=== PATIENT | male | born 2000 | race Caucasian/White ===

== ENCOUNTER 2019-02-11 22:32 | Emergency (ER) | payer MEDICAID ==
[~2019-02-11] VITALS: Ht 185.4 cm; Wt 72.6 kg
[~2019-02-11 22:32] MED LIST: [UNRECOGNIZED DRUG - SUPPLY]
--- NOTE | 2019-02-11 23:28 | NUR ---
Pt called 3x, no answer. Patient left without being seen. No further treatment provided. ER MD aware
[2019-02-11 23:34] VITALS: BP_SYST 117
== END 2019-02-11 23:28 | disposition left against medical advice (07) ==
LOC: SED 22:32
DX: R55 Syncope and collapse (principal); H93.13 Tinnitus, bilateral; R68.83 Chills (without fever); Z53.21 Procedure and treatment not carried out due to patient leaving prior to being seen by health care provider

== ENCOUNTER 2019-03-23 17:50 | Emergency (ER) | payer MEDICAID ==
[~2019-03-23] VITALS: Ht 185.4 cm; Wt 81.6 kg
[2019-03-23 17:50] VITALS: BP_SYST 129
--- NOTE | 2019-03-23 17:50 | NUR ---
BROUGHT BACK TO BED #7 AND TRIAGED. REPORT GIVEN TO RAMOS.
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
--- NOTE | 2019-03-23 17:57 | NUR ---
MARIIA HAYES AT BEDSIDE FOR EVALUATION
[2019-03-23] MEDS ORDERED: KETOROLAC TROMETHAMINE 60 MG/2 ML VIAL IM ONE (18:00)
--- NOTE | 2019-03-23 18:29 | NUR ---
Patient given written and verbal discharge instructions and verbalizes understanding. ER MD discussed with patient the results and treatment provided. Patient in stable condition. ID arm band removed. Rx of TYLENOL WITH CODINE AND MOTRIN given. Patient educated on pain management and to follow up with PMD. Pain Scale 7/10 TOLERABLE. PATIENT SENT HOME WITH RX OF PAIN MEDS. Opportunity for questions provided and answered. Medication side effect fact sheet provided.
[2019-03-23 18:30] VITALS: BP_SYST 129
== END 2019-03-23 18:29 | disposition home or self-care (01) ==
LOC: SED 17:50
DX: K04.7 Periapical abscess without sinus (principal); K08.89 Other specified disorders of teeth and supporting structures; J45.909 Unspecified asthma, uncomplicated
CPT/HCPCS: 96372; 99283; J1885

== ENCOUNTER 2021-07-19 19:46 | Emergency (ER) | payer OTHER, MEDICAID ==
[~2021-07-19] VITALS: Ht 185.4 cm; Wt 99.8 kg
--- NOTE | 2021-07-19 20:09 | NUR ---
Patient to [facility] for evaluation.
--- NOTE | 2021-07-19 20:09 | NUR ---
ER at bedside examining patient.
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
[2021-07-19 20:15] VITALS: BP_SYST 128
[2021-07-19] MEDS ORDERED: IBUP-1969 PO (21:10)
--- NOTE | 2021-07-19 21:52 | NUR ---
Right wrist splint applied . Radial pulse noted. Capillary refill <3 seconds. Patient has ability to move non-splinted digits. Has sensation present to affected site. Skin color within normal limits. Applied for pain management control.
[2021-07-19 22:13] VITALS: BP_SYST 112
--- NOTE | 2021-07-19 22:13 | NUR ---
Patient given written and verbal discharge instructions and verbalizes understanding. ER MD discussed with patient the results and treatment provided. Patient in stable condition. ID arm band removed. Ibuprofen RX given. Patient educated on pain management and to follow up with PMD. Pain Scale 0/10 Opportunity for questions provided and answered. Medication side effect fact sheet provided.
== END 2021-07-19 22:13 | disposition home or self-care (01) ==
LOC: SED 19:46
DX: S13.4XXA Sprain of ligaments of cervical spine, initial encounter (principal); S63.501A Unspecified sprain of right wrist, initial encounter; M25.562 Pain in left knee; J45.909 Unspecified asthma, uncomplicated; Z79.899 Other long term (current) drug therapy; V49.49XA Driver injured in collision with other motor vehicles in traffic accident, initial encounter; Y93.89 Activity, other specified; Y92.89 Other specified places as the place of occurrence of the external cause; Y99.8 Other external cause status
CPT/HCPCS: 72125-TC; 73564; 76376; 99284

== ENCOUNTER 2022-01-01 02:03 | Emergency (ER) | payer MEDICAID ==
[~2022-01-01] VITALS: Ht 182.9 cm; Wt 81.6 kg
[~2022-01-01 02:03] MED LIST changes: +IBUP-1969 PO
[2022-01-01 02:05] VITALS: BP_SYST 129
--- NOTE | 2022-01-01 02:06 | NUR ---
DR MARTI AT BEDSIDE FOR EXAM
[2022-01-01] MEDS ORDERED: methylPREDNISolone SOD SUCC/PF 62.5 MG/ML VIAL IVP ONE (02:15)
[2022-01-01] MEDS ORDERED: ALBUTEROL SULFATE 0.083% 2.5 MG/3 ML VIAL.NEB INH ONE ×2 (02:15→03:30)
[2022-01-01] MEDS ORDERED: NACL 0.9% 1,000 ML IV ONE (02:15)
--- NOTE | 2022-01-01 02:40 | NUR ---
PATIENT MOVED TO BED 8. PLACED ON CARDIAC MONITORING
--- NOTE | 2022-01-01 03:50 | NUR ---
PT IS A&O X 4 CAME IN WITH SOB. UPON ASSESMENT PT HAS WHEEZING LUNG SOUND. PT STATES THAT HE HAS ASHMA SINCE A KID. RT INITATE BREATHING TREATMENT.
[2022-01-01] MEDS ORDERED: PRED20TA PO (04:53)
--- NOTE | 2022-01-01 05:02 | NUR ---
Patient given written and verbal discharge instructions and verbalizes understanding. ER MD discussed with patient the results and treatment provided. Patient in stable condition. ID arm band removed. IV catheter removed intact and dressing applied, no active bleeding. Rx of PREDNISOME given. Patient educated on pain management and to follow up with PMD. Pain Scale . Opportunity for questions provided and answered. Medication side effect fact sheet provided.
[2022-01-01 05:03] VITALS: BP_SYST 109
== END 2022-01-01 05:03 | disposition home or self-care (01) ==
LOC: SED 02:03
DX: J45.909 Unspecified asthma, uncomplicated (principal)
CPT/HCPCS: 71045; 94640; 96361; 96374; 99285; J2930; J7030; J7613